=== PATIENT | male | born 1960 | race Caucasian/White ===

== ENCOUNTER 2023-02-26 11:47 | Observation (INO) | payer OTHER ==
[2023-02-26 12:08] VITALS: BMI 29.1
[2023-02-26 13:15] LABS: BASO % 0.6 % (0-2.0); EOS % 1.2 % (0-4.5); HEMATOCRIT 52.7 % (35.4-49); HEMOGLOBIN 18.4 GM/dL (11.7-16.9); LYMPH % 24.2 % (8-40); MCH 32.3 pg (25.7-33.7); MCHC 34.8 g/dl (32.0-35.9); MEAN CELL VOLUME 92.8 fl (80-96); MEAN PLT VOLUME 7.8 fl (7.5-11.1); MONO % 7.7 % (3.8-10.2); NEUT % 66.3 % (42.8-82.8); PLATELET COUNT 195 10^3/uL (134-434); RBC 5.67 M/mm3 (4.00-5.60); RDW 12.9 % (11.9-15.9)
[2023-02-26 13:26] LABS: INR 0.98 (0.83-1.09); PROTHROMBIN TIME (PATIENT) 11.4 SEC (9.7-13.0)
[2023-02-26 13:28] LABS: ACTIVATED PTT 30.6 SECONDS (25.2-36.5)
[2023-02-26 13:46] LABS: POTASSIUM 4.7 mmol/L (3.5-5.1)
[2023-02-26 13:48] LABS: CALCIUM 9.3 mg/dL (8.5-10.1)
[2023-02-26 13:49] LABS: ALBUMIN 3.9 g/dl (3.4-5.0); BLOOD UREA NITROGEN 25.5 mg/dL (7-18)
[2023-02-26 13:52] LABS: CREATININE 0.9 mg/dL (0.55-1.3)
[2023-02-26 13:53] LABS: TOT PROT 7.5 g/dl (6.4-8.2)
[2023-02-26 13:54] LABS: BILIRUBIN,TOTAL 0.8 mg/dL (0.2-1)
[2023-02-26] MEDS: SODIUM CHLORIDE 1,000 ML IV SCH ×2 (14:00→16:49)
[2023-02-26] MEDS ORDERED: FOLIC ACID 1 MG TABLET (FP) PO ONE (14:51)
[2023-02-26] MEDS ORDERED: THIAMINE HCL 100 MG TABLET (FP) PO ONE (14:52)
[2023-02-26] MEDS ORDERED: THIAMINE HCL 100 MG TABLET (FP) ONE (14:59)
[2023-02-26] MEDS ORDERED: FOLIC ACID 1 MG TABLET (FP) ONE (15:00)
[2023-02-26 16:56] LABS: PH,URINE 5.5 (5.0-8.0); URINE APPEARANCE CLEAR; URINE BILIRUBIN NEGATIVE (NEGATIVE); URINE COLOR YELLOW; URINE GLUCOSE (UA) 3+ (NEGATIVE); URINE KETONE 3+ (NEGATIVE); URINE LEUK ESTERASE NEGATIVE (NEGATIVE); URINE NITRITE NEGATIVE (NEGATIVE); URINE PROTEIN NEGATIVE (NEGATIVE); URINE UROBILINOGEN 0.2 mg/dL (0.2-1.0)
[2023-02-26] MEDS: INSULIN SLIDING SCALE (NOVOLOG) 1 VIAL SQ SCH ×2 (17:28→22:12)
[2023-02-26] MEDS ORDERED: diazePAM 5 MG TABLET PO PRN ×2 (18:52)
[2023-02-26] MEDS: ATORVASTATIN CA 40 MG TABLET (FP) PO SCH (22:12)
[2023-02-26] MEDS: INSULIN (LEVEMIR) 100 UNITS/ML UNITS SQ SCH (22:13)
[2023-02-27] MEDS: SODIUM CHLORIDE 1,000 ML IV SCH ×2 (03:40→11:44)
[2023-02-27] MEDS: INSULIN SLIDING SCALE (NOVOLOG) 1 VIAL SQ SCH ×4 (06:25→21:45)
[2023-02-27 08:45] LABS: BASO % 0.7 % (0-2.0); EOS % 2.6 % (0-4.5); HEMOGLOBIN 16.8 GM/dL (11.7-16.9); LYMPH % 39.1 % (8-40); MCH 31.6 pg (25.7-33.7); MCHC 33.7 g/dl (32.0-35.9); MEAN CELL VOLUME 93.9 fl (80-96); MEAN PLT VOLUME 8.6 fl (7.5-11.1); MONO % 10.6 % (3.8-10.2); PLATELET COUNT 180 10^3/uL (134-434); RBC 5.32 M/mm3 (4.00-5.60); RDW 12.4 % (11.9-15.9); WHITE BLOOD COUNT 5.6 K/mm3 (4.0-10.0)
[2023-02-27 09:01] LABS: POTASSIUM 4.2 mmol/L (3.5-5.1)
[2023-02-27 09:07] LABS: ALBUMIN 3.3 g/dl (3.4-5.0); BLOOD UREA NITROGEN 23.2 mg/dL (7-18); CALCIUM 8.6 mg/dL (8.5-10.1)
[2023-02-27 09:10] LABS: CREATININE 0.8 mg/dL (0.55-1.3); PHOSPHOROUS 3.8 mg/dL (2.5-4.9)
[2023-02-27 09:11] LABS: BILIRUBIN,TOTAL 0.8 mg/dL (0.2-1); TOT PROT 6.2 g/dl (6.4-8.2)
[2023-02-27] MEDS: THIAMINE HCL 100 MG TABLET (FP) PO SCH (09:54)
[2023-02-27] MEDS: FOLIC ACID 1 MG TABLET (FP) PO SCH (09:54)
[2023-02-27] MEDS: ENOXAPARIN NA (PORCINE) 40 MG/0.4 ML DISP.SYRIN SQ SCH (09:54)
[2023-02-27] MEDS: INSULIN (LEVEMIR) 100 UNITS/ML UNITS SQ SCH ×2 (11:29→21:45)
[2023-02-27] MEDS: ATORVASTATIN CA 40 MG TABLET (FP) PO SCH (21:42)
[2023-02-28] MEDS: INSULIN SLIDING SCALE (NOVOLOG) 1 VIAL SQ SCH ×4 (06:19→21:32)
[2023-02-28] MEDS: INSULIN (LEVEMIR) 100 UNITS/ML UNITS SQ SCH ×2 (06:20→21:30)
[2023-02-28 07:42] LABS: BLOOD UREA NITROGEN 16.3 mg/dL (7-18); CALCIUM 8.7 mg/dL (8.5-10.1); MAGNESIUM 1.9 mg/dL (1.8-2.4)
[2023-02-28 07:46] LABS: CREATININE 0.7 mg/dL (0.55-1.3)
[2023-02-28 07:47] LABS: BASO % 0.6 % (0-2.0); EOS % 2.7 % (0-4.5); HEMATOCRIT 48.4 % (35.4-49); HEMOGLOBIN 16.7 GM/dL (11.7-16.9); LYMPH % 37.6 % (8-40); MCH 32.3 pg (25.7-33.7); MCHC 34.6 g/dl (32.0-35.9); MEAN CELL VOLUME 93.5 fl (80-96); MEAN PLT VOLUME 8.5 fl (7.5-11.1); NEUT % 48.1 % (42.8-82.8); PLATELET COUNT 166 10^3/uL (134-434); RBC 5.17 M/mm3 (4.00-5.60); RDW 12.5 % (11.9-15.9); WHITE BLOOD COUNT 5.8 K/mm3 (4.0-10.0)
[2023-02-28] MEDS: FOLIC ACID 1 MG TABLET (FP) PO SCH (10:52)
[2023-02-28] MEDS: ENOXAPARIN NA (PORCINE) 40 MG/0.4 ML DISP.SYRIN SQ SCH (10:52)
[2023-02-28] MEDS: THIAMINE HCL 100 MG TABLET (FP) PO SCH (10:52)
[2023-02-28] MEDS: SODIUM CHLORIDE 1,000 ML IV SCH ×2 (17:05→21:26)
[2023-02-28] MEDS: ATORVASTATIN CA 40 MG TABLET (FP) PO SCH (21:27)
[2023-03-01] MEDS: INSULIN (LEVEMIR) 100 UNITS/ML UNITS SQ SCH (06:08)
[2023-03-01] MEDS: INSULIN SLIDING SCALE (NOVOLOG) 1 VIAL SQ SCH ×2 (06:09→12:25)
[2023-03-01 06:38] VITALS: RESP 18
[2023-03-01] MEDS: THIAMINE HCL 100 MG TABLET (FP) PO SCH (10:29)
[2023-03-01] MEDS: FOLIC ACID 1 MG TABLET (FP) PO SCH (10:29)
[2023-03-01] MEDS: ENOXAPARIN NA (PORCINE) 40 MG/0.4 ML DISP.SYRIN SQ SCH (10:30)
[2023-03-01 14:33] VITALS: BP 129/73; PULSE 77; TEMP 98.5
== END 2023-03-01 17:32 | disposition home or self-care (01) ==
LOC: JER 11:47 → INTOOBSV 15:10 → JERBED 15:10 → UNDOADMOB 15:10 → JERBED 16:10 → J4S 20:58
PROVIDERS: ADMIT Internal Medicine; ATTEND Internal Medicine
PROC: 3E013VG Introduction of Insulin into Subcutaneous Tissue, Percutaneous Approach (ICD-10-PCS; principal; 2023-02-26)
PROC: 3E0337Z Introduction of Electrolytic and Water Balance Substance into Peripheral Vein, Percutaneous Approach (ICD-10-PCS; 2023-02-26)
DX: R27.0 Ataxia, unspecified (principal); F10.10 Alcohol abuse, uncomplicated; E11.9 Type 2 diabetes mellitus without complications; I10 Essential (primary) hypertension; E78.5 Hyperlipidemia, unspecified; W18.39XA Other fall on same level, initial encounter; Y93.89 Activity, other specified; Y92.003 Bedroom of unspecified non-institutional (private) residence as the place of occurrence of the external cause; W06.XXXA Fall from bed, initial encounter; H40.9 Unspecified glaucoma
CPT/HCPCS: 36415; 70450-TC; 70551-TC; 71045-TC-FY; 80048; 80053; 80061; 81003; 82962; 83036; 83735; 84100; 84443; 84484; 85025; 85610; 85730; 86850; 86900; 86901; 93005; 93010; 96360; 96372; 97116-GP; 97161-GP; 99285-25; G0378